=== PATIENT | female | born 1945 | race Caucasian/White ===

== ENCOUNTER → 2019-02-02 | Outpatient (CLI) | payer MEDICARE, OTHER | LOC: M.RAD 12:46 | DX: Z12.31 Encounter for screening mammogram for malignant neoplasm of breast (principal) ==

== ENCOUNTER → 2019-02-25 | Outpatient (CLI) | payer MEDICARE, OTHER | LOC: M.ULTRA 02-10 11:30 → M.RAD 02-11 10:40 → M.ULTRA 13:30 → M.RAD 03-12 10:40 | DX: R92.2 Inconclusive mammogram (principal) ==

== ENCOUNTER → 2020-02-04 | Outpatient (CLI) | payer MEDICARE, OTHER | LOC: M.RAD 09:00 | PROVIDERS: ATTEND Family Medicine | DX: Z12.31 Encounter for screening mammogram for malignant neoplasm of breast (principal) ==

== ENCOUNTER → 2021-03-14 | Outpatient (CLI) | payer MEDICARE, OTHER | LOC: M.ULTRA 03-07 09:49 → M.RAD 09:52 → M.ULTRA 10:30 → M.RAD 10:30 | PROVIDERS: ATTEND Family Medicine | DX: Z12.31 Encounter for screening mammogram for malignant neoplasm of breast (principal); M85.88 Other specified disorders of bone density and structure, other site; M79.602 Pain in left arm; M81.0 Age-related osteoporosis without current pathological fracture; R22.32 Localized swelling, mass and lump, left upper limb; Z91.89 Other specified personal risk factors, not elsewhere classified; Z78.0 Asymptomatic menopausal state ==